=== PATIENT | female | born 1970 | race Caucasian/White ===

== ENCOUNTER 2021-04-02 09:00 | Outpatient (CLI) | payer OTHER | END 2021-04-02 09:01 | disposition critical access hospital (66) | LOC: EMS 09:00 | DX: R10.32 Left lower quadrant pain (principal); R11.2 Nausea with vomiting, unspecified; K92.1 Melena | CPT/HCPCS: A0425; A0427 ==

== ENCOUNTER 2021-04-02 09:25 | Emergency (ER) | payer OTHER ==
[2021-04-02] MEDS ORDERED: SODIUM CHLORIDE 0.9% 1,000 ML IV STA (09:50)
[2021-04-02] MEDS ORDERED: ONDANSETRON 4 MG/2 ML VIAL IVP STA (09:50)
[2021-04-02] MEDS: KETOROLAC 30 MG/ML VIAL IVP STA ×2 (10:10→10:14)
[2021-04-02 10:31] LABS: BASOPHILS # (AUTO) 0.1 10^3/uL (0.0-0.1); BASOPHILS % (AUTO) 0.5 %; EOSINOPHILS % (AUTO) 0.1 %; HCT - HEMATOCRIT 42.5 % (37.0-47.0); HGB - HEMOGLOBIN 14.7 g/dL (12.0-16.0); LYMPHOCYTES # (AUTO) 1.5 10^3/uL (1.5-3.5); LYMPHOCYTES % (AUTO) 14.2 %; MEAN CORPUSCULAR HEMOGLOBIN 30.2 pg (27.0-31.0); MEAN CORPUSCULAR HGB CONC 34.6 g/dL (32.0-36.0); MEAN CORPUSCULAR VOLUME 87.4 fL (81.0-99.0); MEAN PLATELET VOLUME 10.5 fL (7.9-10.8); MONOCYTES # (AUTO) 0.4 10^3/uL (0.0-1.0); MONOCYTES % (AUTO) 3.5 %; NEUTROPHILS # (AUTO) 8.5 10^3/uL (1.5-6.6); NEUTROPHILS % (AUTO) 81.1 %; PLT - PLATELET COUNT 257 10^3/uL (130-450); RED BLOOD COUNT 4.86 10^6/uL (4.20-5.40); RED CELL DISTRIBUTION WIDTH 12.3 % (12.0-15.0); WHITE BLOOD COUNT 10.4 x10^3/uL (4.8-10.8)
[2021-04-02 10:43] LABS: ALBUMIN 4.8 g/dL (3.2-5.5); ALBUMIN/GLOBULIN RATIO 1.5 (1.0-2.2); BILIRUBIN,TOTAL 1.2 mg/dL (0.2-1.0); CALCIUM 9.6 mg/dL (8.5-10.3); CREATININE 0.8 mg/dL (0.4-1.0); POTASSIUM 3.7 mmol/L (3.5-5.0); TOTAL PROTEIN 7.9 g/dL (6.7-8.2)
[2021-04-02 11:05] LABS: BILIRUBIN,URINE NEGATIVE (NEGATIVE); GLUCOSE, URINE (UA) NEGATIVE (NEGATIVE); KETONES,URINE (UA) >=80 mg/dL (NEGATIVE); LEUKOCYTE ESTERASE, URINE NEGATIVE (NEGATIVE); NITRITE,URINE NEGATIVE (NEGATIVE); OCCULT BLOOD,URINE LARGE (NEGATIVE); PH,URINE 8.5 PH (5.0-7.5); PROTEIN,URINE NEGATIVE (NEGATIVE); UROBILINOGEN,URINE 0.2 (NORMAL) E.U./dL (NORMAL)
[2021-04-02 11:07] LABS: CLARITY,URINE CLOUDY (CLEAR); HCG UR QUAL NEGATIVE
[2021-04-02 11:26] LABS: BACTERIA,URINE Few /HPF (None Seen); RBC,URINE TNTC /HPF (0-5); SQUAMOUS EPITHELIAL CELL,UR RARE Squamous (<= Few); WBC,URINE 0-3 /HPF (0-5)
[2021-04-02 11:27] LABS: AMORPHOUS SEDIMENT,UR Few /LPF
--- NOTE | 2021-04-02 12:49 | ED Physician Documentation ---
PD HPI ABD PAIN - Stated complaint Stated Complaint: L LOW ABD PX - Chief complaint Chief Complaint: Abd Pain - History obtained from History obtained from: Patient, Family - History of Present Illness Timing - onset: Today Timing - duration: Hours Timing - details: Abrupt onset, Still present Quality: Sharp, Pain Location: LLQ Radiation: Left flank Improved by: Other (nothing) Worsened by: Other (nothing) Associated symptoms: Nausea. No: Fever Similar symptoms before: Has not had sx before Recently seen: Not recently seen - Additional information Additional information: Previously well 51-year-old female awoke this morning feeling well after she was up she had a sudden onset of pain in the left lower quadrant of her abdomen which is sharp and cramping in nature and radiated into her flank. She was unable to improve this by any positioning or maneuvers and was unable to make this any worse. Is able to push on the area without it hurting more. She has some nausea she has not had vomiting she has not had fever. She has not been ill recently. Review of Systems Constitutional: denies: Fever Eyes: denies: Decreased vision Ears: denies: Ear pain Nose: denies: Congestion Throat: denies: Sore throat Cardiac: denies: Chest pain / pressure, Palpitations Respiratory: denies: Dyspnea, Cough GI: reports: Abdominal Pain, Nausea. denies: Vomiting, Constipation, Diarrhea : denies: Dysuria, Frequency Skin: denies: Rash Musculoskeletal: reports: Back pain. 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 - Allergies Allergies/Adverse Reactions: Allergies Allergy/AdvReac Type Severity Reaction Status Date / Time aspirin [From Norgesic] Allergy Unknown Verified 04/02/21 10:06 caffeine [From Norgesic] Allergy Unknown Verified 04/02/21 10:06 fentanyl Allergy Itching Verified 04/02/21 10:06 ofloxacin Allergy Anaphylaxis Verified 04/02/21 10:06 orphenadrine [From Norgesic] Allergy Unknown Verified 04/02/21 10:06 - Social History Does the pt smoke?: No Smoking Status: Never smoker Does the pt drink ETOH?: Yes Does the pt have substance abuse?: No - Immunizations Immunizations are current?: Yes - POLST Patient has POLST: No PD ED PE NORMAL - Vitals Vital signs reviewed: Yes (hypertensive) - General General: Alert and oriented X 3, No acute distress, Well developed/nourished - HEENT HEENT: Atraumatic, PERRL, EOMI - Neck Neck: Supple, no meningeal sign, No bony TTP - Cardiac Cardiac: RRR, No murmur - Respiratory Respiratory: No respiratory distress, Clear bilaterally - Abdomen Abdomen: Normal bowel sounds, Soft, Non tender, Non distended, No organomegaly - Back Back: No CVA TTP, No spinal TTP - Derm Derm: Normal color, Warm and dry, No rash - Extremities Extremities: No deformity, No edema - Neuro Neuro: Alert and oriented X 3, hide puller 2-12 intact, No motor deficit, No sensory deficit, Normal speech Eye Opening: Spontaneous Motor: Obeys Commands Verbal: Oriented GCS Score: 15 - Psych Psych: Normal mood, Normal affect Results - Vitals Vitals: Vital Signs - 24 hr 04/02/21 04/02/21 04/02/21 09:30 12:00 12:58 Temperature 36.6 C 36.8 C Heart Rate 78 71 Respiratory 21 17 Rate Blood Pressure 108/85 H 109/72 O2 Saturation 97 94 Oxygen O2 Source Room air - Labs Labs: Laboratory Tests 04/02/21 04/02/21 04/02/21 10:08 10:08 10:50 WBC 10.4 RBC 4.86 Hgb 14.7 Hct 42.5 MCV 87.4 MCH 30.2 MCHC 34.6 RDW 12.3 Plt Count 257 MPV 10.5 Neut # (Auto) 8.5 H Lymph # (Auto) 1.5 [place] # (Auto) 0.4 Eos # (Auto) 0.0 Baso # (Auto) 0.1 Absolute Nucleated RBC 0.00 Nucleated RBC % 0.0 Sodium 142 Potassium 3.7 Chloride 106 Carbon Dioxide 19 L Anion Gap 17.0 H BUN 22 H Creatinine 0.8 Estimated GFR (MDRD) 76 L Glucose 112 H Calcium 9.6 Total Bilirubin 1.2 H AST 18 ALT 20 Alkaline Phosphatase 23 L Total Protein 7.9 Albumin 4.8 Globulin 3.1 Albumin/Globulin Ratio 1.5 Lipase 33 Urine Color DARK YELLOW Urine Clarity CLOUDY Urine pH 8.5 H Ur Specific [place] 1.020 Urine Protein NEGATIVE Urine Glucose (UA) NEGATIVE Urine Ketones >=80 H Urine Occult Blood LARGE H Urine Nitrite NEGATIVE Urine Bilirubin NEGATIVE Urine Urobilinogen 0.2 (NORMAL) Ur Leukocyte Esterase NEGATIVE Urine RBC TNTC H Urine WBC 0-3 Ur Squamous Epith Cells RARE Squamous Amorphous Sediment Few Urine Bacteria Few Ur Microscopic Review INDICATED Urine Culture Comments NOT INDICATED Urine HCG, Qual NEGATIVE - Rads (name of study) ab pel CT Radiology: Prelim report reviewed (Impression: 1. No acute CT abdomen or pelvis findings. No evidence of obstruction uropathy or calculi. 2. Right lower lobe 3 mm pulmonary nodule. Consider 12-month follow-up evaluation of high risk patient. 3. Cholecystectomy.), EMP read indepedently, See rad report Procedures - Bedside sono Bedside sono by EMP: With use of bedside ultrasound the left kidney is imaged it is sonographically nontender and there is evidence of hydronephrosis. PD MEDICAL DECISION MAKING - ED course Complexity details: reviewed results, re-evaluated patient, considered differential, d/w patient, d/w family ED course: 51-year-old female with acute left flank pain with that is nonmodifiable has hydronephrosis on the bedside ultrasound examination she is administered a liter of saline and 30 mg of Toradol and there is a delay in obtaining the CT scan and at the time of CT scan, she has had resolution of her pain. There are no findings on the CT but there is hematuria present. Looks like she may have passed the stone. Departure - Departure Disposition: 01 Home, Self Care Clinical Impression: Ureterolithiasis Condition: Stable Instructions: ED Stone Renal Passed Follow-Up: Your, doctor [Other] Comments: There is an incidental (likely artifact) right lower lobe pulmonary nodule in your chest seen on the CAT scan. This will need follow-up in about 1 year. Follow-up with your regular doctor.
--- NOTE | 2021-04-02 12:52 | CT Report ---
PROCEDURE: Abdomen/Pelvis WO INDICATIONS: left flank pain TECHNIQUE: Noncontrast 5 mm thick sections acquired from the diaphragms to the symphysis. 5 mm coronal and sagi ttal reformats were then performed. For radiation dose reduction, the following was used: automated exposure control, adjustment of mA and/or kV according to patient size. COMPARISON: None. FINDINGS: Image quality: Excellent. ABDOMEN: Lung bases: Incidental right lower lobe pleural-based 3 mm nodule on image 5/161. Remainder the lung bases are clear. Heart size is normal. Solid organs: Liver and spleen are normal in size. Gallbladder surgically absent. Pancreas is norm al in contours. No adrenal nodules. Kidneys are normal in size, without hydronephrosis or nephrolit hiasis. Peritoneum and bowel: Unenhanced bowel loops demonstrate normal wall thickness and caliber. No free fluid or air. Normal appendix identified Nodes and vessels: No retroperitoneal or mesenteric adenopathy by size criteria. Aorta and inferior vena cava are normal in caliber. Miscellaneous: No ventral hernias. PELVIS: Genitourinary: Bladder wall thickness is normal. Miscellaneous: No inguinal hernias or adenopathy. Bones: No suspicious bony lesions. No vertebral body compression fractures. IMPRESSION: 1. No acute CT abdomen or pelvis findings. No evidence of obstructive uropathy or calculi. 2. Incidental right lower lobe 3 mm pulmonary nodule. Consider 12 month follow-up evaluation if high risk patient. 3. Cholecystectomy Reviewed by: Ricardo Hernández MD on 04/02/2021 11:51 AM MT Approved by: Ricardo Hernández MD on 04/02/2021 11:51 AM AKJASWANT Station ID: [id number]
[2021-04-02 13:08] VITALS: BP 118/78
== END 2021-04-02 13:13 | disposition home or self-care (01) ==
LOC: ED 09:25
DX: N13.2 Hydronephrosis with renal and ureteral calculous obstruction (principal); R31.9 Hematuria, unspecified
CPT/HCPCS: 36415; 80053; 81001; 81003; 81025; 83690; 85025; 87086; 96374; 96375; 99284

== ENCOUNTER 2021-04-04 12:57 | Emergency (ER) | payer OTHER ==
[2021-04-04] MEDS ORDERED: KETOROLAC 30 MG/ML VIAL IVP STA (14:13)
[2021-04-04] MEDS ORDERED: SODIUM CHLORIDE 0.9% 1,000 ML IV STA (14:13)
--- NOTE | 2021-04-04 14:17 | ED Physician Documentation ---
History of Present Illness - Stated complaint Stated Complaint: BACK PX - Chief complaint Chief Complaint: Abd Pain - History obtained from History obtained from: Patient - History of Present Illness Pain level max: 9 Pain level now: 9 - Additonal information Additional information: Patient is a 51-year-old female who presents to the emergency department complaint of left-sided abdominal and back pain. She states that she was seen here recently. Had a ultrasound that showed left-sided hydronephrosis with a kidney stone. She states that by the time she went to CAT scan, they CAT scan did not show any kidney stone at that time. No fevers. No chills. 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 Has had recurrent UTIs in the past. Noted blood in her urine today. She states the pain comes and goes. Pain is described as sharp in nature. Nothing makes it better or worse Review of Systems Ten Systems: 10 systems reviewed and negative Constitutional: denies: Fever, Chills Nose: denies: Rhinorrhea / runny nose, Congestion Cardiac: denies: Chest pain / pressure Respiratory: denies: Cough GI: denies: Nausea, Vomiting, Diarrhea : reports: Hematuria. 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 - Present Medications Home Medications: Ambulatory Orders Medication Instructions Recorded Confirmed Dicyclomine [Bentyl] 10 mg PO QID PRN #30 04/04/21 Ketorolac [Toradol] 10 mg PO Q6H PRN #20 tablet 04/04/21 Sulfamethox/Trimeth 800/160 1 each PO BID #14 tablet 04/04/21 [Bactrim Ds 800/160] - Allergies Allergies/Adverse Reactions: Allergies Allergy/AdvReac Type Severity Reaction Status Date / Time aspirin [From Norgesic] Allergy Unknown Verified 04/04/21 13:05 caffeine [From Norgesic] Allergy Unknown Verified 04/04/21 13:05 fentanyl Allergy Itching Verified 04/04/21 13:05 ofloxacin Allergy Anaphylaxis Verified 04/04/21 13:05 orphenadrine [From Norgesic] Allergy Unknown Verified 04/04/21 13:05 - Social History Does the pt smoke?: No Smoking Status: Never smoker Does the pt drink ETOH?: Yes Does the pt have substance abuse?: No - Immunizations Immunizations are current?: Yes - POLST Patient has POLST: No PD ED PE NORMAL - Vitals Vital signs reviewed: Yes - General General: Alert and oriented X 3, No acute distress, Well developed/nourished - HEENT HEENT: PERRL, Moist mucous membranes - Neck Neck: Supple, no meningeal sign - Cardiac Cardiac: RRR, Strong equal pulses - Respiratory Respiratory: No respiratory distress, Clear bilaterally - Abdomen Abdomen: Soft, Non tender, Non distended - Back Back: No CVA TTP, No spinal TTP - Derm Derm: Warm and dry - Extremities Extremities: No edema, No calf tenderness / cord - Neuro Neuro: Alert and oriented X 3 - Psych Psych: Normal mood, Normal affect Results - Vitals Vitals: Vital Signs - 24 hr 04/04/21 04/04/21 13:05 15:09 Temperature 36.5 C Heart Rate 79 69 Respiratory 16 18 Rate Blood Pressure 140/100 H 127/79 O2 Saturation 97 99 Oxygen O2 Source Room air - Labs Labs: Laboratory Tests 04/04/21 04/04/21 04/04/21 13:49 14:25 14:25 WBC 9.3 RBC 5.23 Hgb 16.0 Hct 45.5 MCV 87.0 MCH 30.6 MCHC 35.2 RDW 12.4 Plt Count 250 MPV 10.1 Neut # (Auto) 5.7 Lymph # (Auto) 2.9 [place] # (Auto) 0.5 Eos # (Auto) 0.1 Baso # (Auto) 0.1 Absolute Nucleated RBC 0.00 Nucleated RBC % 0.0 Sodium 138 Potassium 4.1 Chloride 102 Carbon Dioxide 22 Anion Gap 14.0 H BUN 18 Creatinine 0.7 Estimated GFR (MDRD) 89 Glucose 79 Calcium 9.5 Total Bilirubin 1.3 H AST 18 ALT 18 Alkaline Phosphatase 26 L Total Protein 8.1 Albumin 4.9 Globulin 3.2 Albumin/Globulin Ratio 1.5 Lipase 32 Urine Color DARK YELLOW Urine Clarity [place]. CLOUDY Urine pH 5.5 Ur Specific [place] 1.020 Urine Protein 30 H Urine Glucose (UA) NEGATIVE Urine Ketones >=80 H Urine Occult Blood LARGE H Urine Nitrite NEGATIVE Urine Bilirubin NEGATIVE Urine Urobilinogen 0.2 (NORMAL) Ur Leukocyte Esterase NEGATIVE Urine RBC TNTC H Urine WBC 4-5 Ur Squamous Epith Cells FEW Squamous Urine Bacteria Few Ur Microscopic Review INDICATED Urine Culture Comments NOT INDICATED Urine HCG, Qual NEGATIVE - Rads (name of study) CT angiogram abdomen pelvis Radiology: Final report received, EMP read contemporaneously, See rad report (No acute abnormality) PD MEDICAL DECISION MAKING - ED course Complexity details: reviewed old records, reviewed results, re-evaluated patient, considered differential, d/w patient ED course: Patient with ongoing left abdominal and left flank pain. Unclear etiology. Normal noncontrast CT at her last visit. Concern for possible renal artery dissection causing the left flank pain and hematuria, angiogram was performed and is negative. Pain well controlled here. Pain does not change with food. Does not appear consistent with gastritis or ulcer. Possible inflammation in the bowel? No evidence of diverticulitis. We will place on pain medication for home and have her follow-up with her doctor for further care. Patient counseled regarding signs and symptoms for which I believe and urgent re-evaluation would be necessary. Patient with good understanding of and agreement to plan and is comfortable going home at this time This document was made in part using voice recognition software. While efforts are made to proofread this document, sound alike and grammatical errors may occur. Given the patient's history of ureteral surgery, we will err on the side of caution and treat for potential UTI as well. Departure - Departure Disposition: 01 Home, Self Care Clinical Impression: Abdominal pain Qualifiers: Abdominal location: left upper quadrant Qualified Code(s): R10.12 - Left upper quadrant pain Hematuria Qualifiers: Hematuria type: gross Qualified Code(s): R31.0 - Gross hematuria Condition: Good Instructions: ED Abdominal Pain Unkn Cause Follow-Up: your,doctor in 1 week [Other] Prescriptions: Sulfamethox/Trimeth 800/160 [Bactrim Ds 800/160] 1 each PO BID #14 tablet Dicyclomine [Bentyl] 10 mg PO QID PRN #30 PRN Reason: Abdominal Pain Ketorolac [Toradol] 10 mg PO Q6H PRN #20 tablet PRN Reason: Abdominal Pain Comments: The cause of your symptoms is unclear today. Will try treating you for UTI given your past history of bilateral ureteral reimplantation. We will also place you on Toradol for home. Please follow-up with your doctor for further care. Return if you worsen Discharge Date/Time: 04/04/21 16:52
[2021-04-04 14:22] LABS: GLUCOSE, URINE (UA) NEGATIVE (NEGATIVE); KETONES,URINE (UA) >=80 mg/dL (NEGATIVE); LEUKOCYTE ESTERASE, URINE NEGATIVE (NEGATIVE); NITRITE,URINE NEGATIVE (NEGATIVE); OCCULT BLOOD,URINE LARGE (NEGATIVE); PH,URINE 5.5 PH (5.0-7.5); PROTEIN,URINE 30 mg/dL (NEGATIVE); UROBILINOGEN,URINE 0.2 (NORMAL) E.U./dL (NORMAL)
[2021-04-04 14:29] LABS: BILIRUBIN,URINE NEGATIVE (NEGATIVE); CLARITY,URINE SL. CLOUDY (CLEAR); HCG UR QUAL NEGATIVE; ICTOTEST,URINE NEGATIVE
[2021-04-04 14:33] LABS: BACTERIA,URINE Few /HPF (None Seen); RBC,URINE TNTC /HPF (0-5); SQUAMOUS EPITHELIAL CELL,UR FEW Squamous (<= Few)
[2021-04-04 14:53] LABS: BASOPHILS # (AUTO) 0.1 10^3/uL (0.0-0.1); BASOPHILS % (AUTO) 0.8 %; EOSINOPHILS # (AUTO) 0.1 10^3/uL (0.0-0.7); EOSINOPHILS % (AUTO) 0.6 %; HCT - HEMATOCRIT 45.5 % (37.0-47.0); LYMPHOCYTES # (AUTO) 2.9 10^3/uL (1.5-3.5); LYMPHOCYTES % (AUTO) 31.5 %; MEAN CORPUSCULAR HEMOGLOBIN 30.6 pg (27.0-31.0); MEAN CORPUSCULAR HGB CONC 35.2 g/dL (32.0-36.0); MEAN PLATELET VOLUME 10.1 fL (7.9-10.8); MONOCYTES # (AUTO) 0.5 10^3/uL (0.0-1.0); MONOCYTES % (AUTO) 5.5 %; NEUTROPHILS # (AUTO) 5.7 10^3/uL (1.5-6.6); NEUTROPHILS % (AUTO) 61.1 %; PLT - PLATELET COUNT 250 10^3/uL (130-450); RED BLOOD COUNT 5.23 10^6/uL (4.20-5.40); RED CELL DISTRIBUTION WIDTH 12.4 % (12.0-15.0); WHITE BLOOD COUNT 9.3 x10^3/uL (4.8-10.8)
[2021-04-04 15:06] LABS: ALBUMIN 4.9 g/dL (3.2-5.5); ALBUMIN/GLOBULIN RATIO 1.5 (1.0-2.2); BILIRUBIN,TOTAL 1.3 mg/dL (0.2-1.0); CALCIUM 9.5 mg/dL (8.5-10.3); CREATININE 0.7 mg/dL (0.4-1.0); POTASSIUM 4.1 mmol/L (3.5-5.0); TOTAL PROTEIN 8.1 g/dL (6.7-8.2)
[2021-04-04] MEDS ORDERED: IOPAMIDOL-300 100 ML VIAL ONE (15:10)
[2021-04-04 15:13] VITALS: BP 127/79
[2021-04-04] MEDS ORDERED: IOPAMIDOL-300 100 ML VIAL IVP ONE (15:32)
--- NOTE | 2021-04-04 16:19 | CT Report ---
PROCEDURE: ANGIO ABDOMEN W/WO INDICATIONS: L sided abd pain, blood in urine TECHNIQUE: Helical axial CT of the abdomen and pelvis was obtained after intravenous contrast adminis tration utilizing an angiographic protocol. Multiplanar reformats were constructed. For radiation dos e reduction, automated exposure control, and dose parameter adjustment for patient size was utilized. COMPARISON: 04/02/2021 FINDINGS: Lower thorax: The lung bases are clear other then 3 mm right lower lobe calcified granuloma. Heart s ize normal. No hiatal hernia. Liver: Normal in size and attenuation. No contour deformity present. Biliary system: Cholecystectomy. No evidence of bile duct dilatation. Pancreas: Unremarkable without mass or inflammation evident. Spleen: Normal in size and density. Adrenals: Normal morphology and density. Reproductive system: Unremarkable as visualized. Urinary system: Normal renal size and attenuation. No renal calculi, hydronephrosis, or solid mass p resent. Urinary bladder unremarkable. Gastrointestinal system: The bowel appears unremarkable with no evidence of bowel obstruction or inf lammation. The stomach appears unremarkable. Appendix: No findings to suggest acute appendicitis. Peritoneal spaces: No mesenteric or retroperitoneal adenopathy. No free air. No free fluid. Vasculature: The aorta and origins of the major branches including the celiac, both renals and the SM A are widely patent without aneurysm or dissection are both common, internal and extra iliac arteries are also unremarkable. Musculoskeletal: Normal bone mineralization. No acute fractures. Abdominal wall intact without clara dence of ventral or inguinal hernias. IMPRESSION:? 1. Unremarkable CT angiography of the abdomen and pelvis. No evidence of aortic aneurysm or dissectio n. 2. Cholecystectomy. Reviewed by: Ricardo Hernández MD on 04/04/2021 3:17 PM AKDT Approved by: Ricardo Hernández MD on 04/04/2021 3:17 PM AKDT Station ID: [id number]
== END 2021-04-04 16:52 | disposition home or self-care (01) ==
LOC: ED 12:57
DX: R10.12 Left upper quadrant pain (principal); R31.0 Gross hematuria
CPT/HCPCS: 36415; 74175; 80053; 81001; 81025; 83690; 85025; 96374; 99284; Q9967; 81003; 87086

== ENCOUNTER 2023-03-16 11:02 | Outpatient (CLI) | payer OTHER ==
--- NOTE | 2023-03-16 14:00 | CT Report ---
PROCEDURE: CHEST WO INDICATIONS: PULMONARY NODULE TECHNIQUE: Noncontrast 1mm axial images were acquired from the pulmonary apices to the posterior costophrenic an gles. Axial 5 mm soft tissue kernel reconstructions were performed as well as 8 mm axial MIP and cor onal and sagittal 5 mm reformations. For radiation dose reduction, the following was used: automate d exposure control, adjustment of mA and/or kV according to patient size. COMPARISON: None FINDINGS: Image quality: Excellent. Lungs and pleura: No consolidation. No pleural effusions. No pneumothorax. There are multiple very s mall bilateral pulmonary nodules. Family Specialist pulmonary nodules are as follows (all described on s eries 4): 1. 3 mm anterior right upper lobe, image 111 2 mm. Fissural nodule, right lung, image 133 4 mm. Fissural nodule, right major fissure, image 160 3 mm nodule, posterior right lower lobe, image 163. 2 mm nodule, posterior right lower lobe, image 165 3 mm nodule, posterior right lower lobe, image 193. 2 mm nodule, anterior medial left upper lobe, image 81 2 mm nodule, left lower lobe, image 179 Mediastinum: Heart size is normal. No pericardial effusion. No large vessel abnormality. No mediastin al adenopathy by size criteria. Chest wall and lower neck: Thyroid is unremarkable. No axillary or supraclavicular adenopathy by size . Bones: No aggressive osseous abnormality. Upper Abdomen: Unremarkable. IMPRESSION: 1. There are numerous very small pulmonary nodules, the largest of which is 4 mm. That particular nod ule is most likely a benign fissural lymph node. The other nodules are 3 mm or less. This may simply be a benign finding. 2. No acute pulmonary process. Comment: Consider single follow-up CT to document stability in 12 months. Reviewed by: Gildardo Anne MD on 03/16/2023 1:59 PM PDT Approved by: Gildardo Anne MD on 03/16/2023 1:59 PM PDT Station ID: [id number]
== END 2023-03-16 11:03 | disposition home or self-care (01) ==
LOC: DI 11:02
PROVIDERS: ATTEND Nurse Practitioner
DX: R91.8 Other nonspecific abnormal finding of lung field (principal)

== ENCOUNTER 2023-03-16 11:02 | Outpatient (CLI) | payer OTHER ==
--- NOTE | 2023-03-19 11:58 | Mammography Report ---
BILATERAL DIGITAL SCREENING MAMMOGRAM 3D/2D: 03/16/2023 CLINICAL: Routine screening. Comparison is made to exam dated: 01/13/2021 mammogram - [facility]. There are scattered areas of fibroglandular density in both breasts (category b / 25%-50% glandular t issue). No significant masses, calcifications, or other findings are seen in either breast. There has been no significant interval change. IMPRESSION: NEGATIVE There is no mammographic evidence of malignancy. A 1 year screening mammogram is recommended. Based on the Tyrer Cuzick model (a risk assessment model) the patients lifetime risk is 9.9% and her 10 year risk is 2.6%. According to the ACR, ACS, and NCCN guidelines, an annual breast MRI exam lala g with mammogram is recommended if the patients lifetime risk is 20% or greater. This exam was interpreted at Station ID: [id number]. NOTE: For mammograms, a report in lay terms will be sent to the patient. Approximately 15% of breast malignancies will not be visualized mammographically. In the management of a palpable breast mass, a negative mammogram must not discourage biopsy of a clinically suspicious lesion. Electronically Signed By: Chris ferrell/nuno:03/16/2023 13:46:09 letter sent: No_Letter ACR BI-RADS Category 1: Negative 3341F PARENCHYMAL PATTERN: (A) - The breast(s) demonstrate(s) scattered fibroglandular densities. BI-RADS CATEGORY: (1) - 1 Mammogram [id number] 1 year screening LATERALITY: (B)
== END 2023-03-16 11:03 | disposition home or self-care (01) ==
LOC: DI 11:02
PROVIDERS: ATTEND Nurse Practitioner
DX: Z12.31 Encounter for screening mammogram for malignant neoplasm of breast (principal)